=== PATIENT | male | born 1955 | race Caucasian/White ===

== ENCOUNTER 2016-09-08 15:45 | Emergency (ER) | payer BC ==
[2016-09-08 15:50] VITALS: BMI 29.6
[2016-09-08] MEDS ORDERED: MORPHINE 4 MG/ML INJECTION IV ONE (15:57)
[2016-09-08] MEDS ORDERED: Lidocaine 2%-Epinephrine 1:100,000 20ml vial INF ONE (15:57)
[2016-09-08] MEDS ORDERED: ONDANSETRON HCL 4 MG/2 ML VIAL IV ONE (15:59)
--- NOTE | 2016-09-08 16:18 | EDPRACDOC ---
<Melissa Costa N - Last Filed: 09/08/16 17:29> - General Information Information Source: Patient Mode of Arrival: Car - History of Present Illness Onset: 30 min HPI: PT STATES WAS AT WORK WALKING AND LEFT KNEE GAVE AWAY AND STATES HE TWISTED HI ANKLE AND STATES HEARD A POP AND THEN FELT A LOT OF PAIN. NOW HAS LEFT ANKLE SWELLING. Ankle Problem Location: Reports: Left, Medial, Lateral, Anterior Mechanism: Reports: None Circumstances: Reports: Fall Able to Bear Weight: No Pain Severity: Reports: Moderate Associated Signs & Symptoms: Reports: Swelling <Leroy Hoffman - Last Filed: 09/08/16 17:58> - General Information Chief Complaint: Fall Stated Complaint: LT ANKLE INJURY ? FX Time Seen by Provider: 09/08/16 15:53 Home Medications: Home Medications Aspirin/Acetaminophen/Caffeine [Excedrin Migraine Tablet (250/250/65mg)] 2 tab PO .ONCE 09/08/16 Aspirin/Calcium Carbonate/Mag [Aspirin Buffered 325 mg Tab] 650 mg PO Q6-8H PRN 09/08/16 Escitalopram Oxalate [Lexapro] 10 mg PO QHS 09/08/16 Lorazepam [Ativan] 1 mg PO DAILY PRN 09/08/16 Oxycodone Immediate Release [Oxycodone Immediate Release (OxyIR)] 5 - 15 mg PO Q4-6H PRN #20 tab 09/08/16 Tramadol HCl [Ultram] 100 mg PO Q6H PRN 09/08/16 Allergies/Adverse Reactions: Allergies Allergy/AdvReac Type Severity Reaction Status Date / Time No Known Allergies Allergy Verified 09/08/16 15:50 ED Past Medical History - History Reviewed Yes Nurses notes reviewed and agree except as marked Travel Outside of [place] in the Last 3 Months?: No No Past Medical History: Yes Patient has no past medical history - Patient Medical History Psychological History: Denies: Depression - Social Medical History Smoking Status: Never smoker ETOH: None Substance Abuse: None Lives With: Spouse Lives In: Home <Leroy Hoffman - Last Filed: 09/08/16 17:58> EDM Review of Systems - Review of Systems ROS Negative Except as Marked: Yes All systems reviewed and were negative except as marked Constitutional: No Symptoms Reported. negative: Fever, Chills, Weakness, Fatigue, Loss of Appetite Eyes: No Symptoms Reported. negative: Redness, Blurred Vision, Double Vision, Discharge, Pain, Light Sensitive, Photophobia Ears: No Symptoms Reported. negative: Pain, Hearing Loss, Drainage, Ear Pulling Throat: No Symptoms Reported. negative: Pain, Swelling Nose: No Symptoms Reported. negative: Congestion, Bleeding, Discharge, Injection, Swelling, Deformity, Ecchymosis, Tender, Abrasion, Laceration Mouth: No Symptoms Reported. negative: Pain, Drooling Respiratory: No Symptoms Reported. negative: Cough, Brassy Cough, Barky Cough, Shortness of Breath, Wheezing, Hemoptysis Cardiovascular: No Symptoms Reported. negative: Chest Pain, Palpitations, Syncope, Edema, Orthopnea, PND, Skin Mottling, Cyanosis Gastrointestinal: No Symptoms Reported. negative: Pain, Constipation, Nausea, Vomiting, Diarrhea, Melena, Formula Intolerance Genitourinary: No Symptoms Reported. negative: Dysuria, Hematuria, Frequency, Discharge, Bleeding, Testicular Pain, Neurological: No Symptoms Reported. negative: Headache, Dizziness, Seizure, Numbness, Weakness, Speech Difficulty, Gait Difficulty Musculoskeletal: Ankle (LT). negative: Arm, Back, Chestwall, Elbow, Forearm, Femur, Foot, Hand, Hip, Knee, Leg, Neck, Pelvis, Ribs, Shoulder, Wrist Integumentary: No Symptoms Reported. negative: Itching, Rash, Bruising, Wound Allergic/Immunologic: No Symptoms Reported. negative: Hives, Itching Hematologic: No Symptoms Reported. negative: Lymphadenopathy, Easy Bruising, Easy Bleeding Endocrine: No Symptoms Reported. negative: Weight Gain, Weight Loss Psychiatric: No Symptoms Reported. negative: Anxiety, Depression, Hallucinations, Insomnia, Suicidal <Leroy Hoffman - Last Filed: 09/08/16 17:58> - Physical Exam Last recorded Vital Signs: Last Vital Signs Temp Pulse 97 09/08/16 15:47 Resp 20 09/08/16 15:47 BP 141/86 09/08/16 15:47 Pulse Ox 97 09/08/16 15:47 Oxygen Pulse Oxygen Saturation 97 O2 Device Room Air Oxygen Flow Rate Fraction of Inspired Oxygen ( FIO2) <Melissa Costa - Last Filed: 09/08/16 17:29> - Physical Exam Constitutional: No apparent distress, Alert (Awake) Oriented to: Time, Person, Place Last recorded Vital Signs: Last Vital Signs Temp Pulse 97 09/08/16 15:47 Resp 20 09/08/16 15:47 BP 141/86 09/08/16 15:47 Pulse Ox 97 09/08/16 15:47 Oxygen Pulse Oxygen Saturation 97 O2 Device Room Air Oxygen Flow Rate Fraction of Inspired Oxygen ( FIO2) - HEENT Head: Normal ( normocephalic) Eye Exam: Normal (PERRL, EOMI, Sclera white) Oropharynx: Normal (Pharynx:Moist without exudate,Gums-no swelling) Tympanic Membrane: Normal ENT EAC: Normal TMJ: Normal Nose: No Symptoms Reported (septum midline) Neck: Normal (FROM, trachea at midline) - Respiratory/Cardiovascular Respiratory: Normal - CTA (BBS clear to auscultation without adventitious sounds ) Cardiovascular: Normal (RRR without murmur, gallop or rub) - GI Auscultation: Normal (NABS) Palpation: Normal (Soft,No rebound or guarding, non distended) Tenderness: Non tender Jackson's Sign: Negative - Musculoskeletal Back: Normal (Non-Tender) Extremities: Normal (Normal tone, Pulses 2+ No cyanosis or edema, FROM) - Integumentary Skin: Normal, Warm, Dry Lymphatics: Normal (no adenopathy) - Neurologic Memory Impaired: Normal Motor Function: Normal (Normal tone, Pulses 2+ No cyanosis or edema, FROM) Cranial Nerve: Normal (CN II-X11 intact sensation, strength 5/5) Cerebellar: Normal Mood Description: Normal Perception: Normal <Leroy Hoffman - Last Filed: 09/08/16 17:58> ED Ankle Problem Phys Exam - Musculoskeletal Ankle: Swelling, Deformity, Limited ROM, Mild Tenderness Achilles Tendon: Normal Knee: Normal Lower Leg: Normal Foot: Normal Distal Function/Circulation: Normal - Integumentary Skin: Normal Lymphatics: Normal <Leroy Hoffman - Last Filed: 09/08/16 17:58> ED Procedures - Splinting LT ANKLE Location: LT Hand-Made Type: orthoglass Splint: STIRRUP Pre-Proc Neuro Vasc Exam: normal Post-Proc Neuro Vasc Exam: normal Other Devices: Other (HAS CRUTCHES AT HOME) - Additional Procedures Progress Note: HEMATOMA BLOCK OF LEFT ANKLE: CLEANED WITH BETADINE LIDOCAINE WITH EPI 10CC USED FOR HEMATOMA BLOCK. PT TOLERATED WELL, AND STARTED HAVING RELIEF ALMOST IMMEDIATELY AFTER PROCEDURE. <Leroy Hoffman - Last Filed: 09/08/16 17:58> - Diagnostic Imaging ANKLE Patient Name: CARLOS ENRIQUE HOBSON LOC: ED : 1955 AGE: 61 Order Date:09/08/16 Date of Service:10/20 Report # [id number] Ord Physician: Melissa Costa MD Exam # [id number] Emergency Physician: Melissa Costa MD Exam(s): [id number] RAD/DG TIBIA/FIBULA 2V-L CLINICAL DATA: Fall. Ankle pain EXAM: LEFT TIBIA AND FIBULA - 2 VIEW COMPARISON: None. FINDINGS: Distal fibular fracture is noted with mild lateral displacement of the distal fracture fragments. There is overlying soft tissue swelling. No dislocations identified. IMPRESSION: 1. Acute fracture involves the distal fibula. Electronically Signed By: Ira Mishra M.D. On: 09/08/2016 16:35 Electronically Signed By: Ira Mishra MD Electronically Signed Date/Time: 638 Dictate Date/Time: 09/08/16 1634 Technologist: Tenea Johnston Transcribed By: Dian Transcribed Date/Time: 09/08/16 1635 <Melissa Costa - Last Filed: 09/08/16 17:29> - Differential Diagnosis Contusion, Fibula Fracture, Fracture, Sprain, Tibia Fracture, Other (DISLOCATION ) - Diagnostic Imaging TIB/FIB Image interpreted by: Radiologist IMPRESSION: 1. Acute fracture involves the distal fibula. ANKLE Image interpreted by: Radiologist IMPRESSION: 1. Distal fibular fracture with lateral displacement of the distal fracture fragments. <Leroy Hoffman - Last Filed: 09/08/16 17:58> <Melissa Costa - Last Filed: 09/08/16 17:29> Decision Time to Discharge: 17:56 - Departure Disposition: Home Education/Counseling Given To: Patient, Family Member Education/Counseling Given Regarding: Diagnosis, Treatment, Prognosis, Follow Up <Leroy Hoffman - Last Filed: 09/08/16 17:58> - Departure Condition: Stable Final Diagnosis: Left fibular fracture Qualifiers: Encounter type: initial encounter Fibula location: distal Fracture type: closed Fracture morphology: unspecified fracture morphology Qualified Code(s): S82.832A - Other fracture of upper and lower end of left fibula, initial encounter for closed fracture Instructions: RICE Therapy (ED), Ankle Fracture (ED) Referrals: Joseph Rivera MD [Primary Care Provider] - One Week Prescriptions: New Oxycodone Immediate Release [Oxycodone Immediate Release (OxyIR)] 5 - 15 mg PO Q4-6H PRN #20 tab PRN Reason: Pain No Action Tramadol HCl [Ultram] 100 mg PO Q6H PRN PRN Reason: Pain Escitalopram Oxalate [Lexapro] 10 mg PO QHS Aspirin/Calcium Carbonate/Mag [Aspirin Buffered 325 mg Tab] 650 mg PO Q6-8H PRN PRN Reason: Pain Aspirin/Acetaminophen/Caffeine [Excedrin Migraine Tablet (250/250/65mg)] 2 tab PO .ONCE Lorazepam [Ativan] 1 mg PO DAILY PRN PRN Reason: Anxiety Additional Instructions: RICE. ICE 20MINUTES ON AND 1 HOUR OFF. RETURN FOR WORSE OR DIFFERENT SYMPTOMS.
--- NOTE | 2016-09-08 16:36 | DIRPT ---
CLINICAL DATA: Fall. Ankle pain EXAM: LEFT ANKLE COMPLETE - 3+ VIEW COMPARISON: None. FINDINGS: There is an acute, intra-articular fracture involving the distal fibula. Mild lateral displacement of the distal fracture fragments. Lateral soft tissue swelling is identified. IMPRESSION: 1. Distal fibular fracture with lateral displacement of the distal fracture fragments. Electronically Signed By: Ira Mishra M.D. On: 09/08/2016 16:34
--- NOTE | 2016-09-08 16:38 | DIRPT ---
CLINICAL DATA: Fall. Ankle pain EXAM: LEFT TIBIA AND FIBULA - 2 VIEW COMPARISON: None. FINDINGS: Distal fibular fracture is noted with mild lateral displacement of the distal fracture fragments. There is overlying soft tissue swelling. No dislocations identified. IMPRESSION: 1. Acute fracture involves the distal fibula. Electronically Signed By: Ira Mishra M.D. On: 09/08/2016 16:35
[2016-09-08 17:44] VITALS: BP 114/56; PULSE 79
== END 2016-09-08 18:22 | disposition home or self-care (01) ==
LOC: ED 15:45
DX: S82.832A Other fracture of upper and lower end of left fibula, initial encounter for closed fracture (principal); X58.XXXA Exposure to other specified factors, initial encounter; Y93.9 Activity, unspecified; Y99.0 Civilian activity done for income or pay
CPT/HCPCS: 29515; 73590; 73610; 96374; 96375; 99283; J2270; J2405; J3490